=== PATIENT | female | born 1955 | race Caucasian/White ===

== ENCOUNTER 2017-10-28 16:19 | Emergency (ER) | payer OTHER ==
[2017-10-28] MEDS ORDERED: Acetaminophen TAB* 325 MG PO ONE (16:34)
--- NOTE | 2017-10-28 17:00 | RAD ---
Indication: Left Knee pain after fall 4 views of left knee demonstrates no fracture. No joint effusion is noted. IMPRESSION: No fracture of the left knee is noted.
[2017-10-28 18:41] VITALS: BP 144/74
--- NOTE | 2017-10-28 18:52 | ED ---
Jeanette Alvarado Gabriel, scribed for Lior Valencia MD on 10/28/17 at 1634 . Lower Extremity - HPI Summary HPI Summary: This patient is a 62 year old F presenting to [facility] s/p fall after she slipped on ice at 0900 today. Patient reports left knee pain and abrasion. The patient rates the pain 4/10 in severity. Symptoms aggravated by movement. Patient denies LOC and head trauma. She states it pops when she bends it and worked a full shift post fall. Patient is unsure of her last tetanus shot date but knows it wasnt over 10 years ago. - History of Current Complaint Chief Complaint: EDExtremityLower Stated Complaint: FALL/LT KNEE INJURY Time Seen by Provider: 10/28/17 16:27 Hx Obtained From: Patient Mechanism Of Injury: Fall From A Standing Position Onset of Pain: Immediate Onset/Duration: Still Present Severity Initially: Moderate Severity Currently: Moderate Pain Intensity: 4 Pain Scale Used: 0-10 Numeric Timing: Constant Associated Signs And Symptoms: Positive: Swelling, Knee Pain, Other - abrasion Aggravating Factor(s): Ambulation Able to Bear Weight: Yes - Allergies/Home Medications Allergies/Adverse Reactions: Allergies Allergy/AdvReac Type Severity Reaction Status Date / Time Hydrocodone AdvReac Intermediate Itching Verified 10/28/17 16:31 Insulin Detemir AdvReac Intermediate Itching Verified 10/28/17 16:31 [From Levemir] Phenol [From Levemir] AdvReac Intermediate Itching Verified 10/28/17 16:31 Cephalexin [From Keflex] AdvReac Unknown Nausea Verified 10/28/17 16:31 Exenatide [From Byetta] AdvReac Unknown Nausea Verified 10/28/17 16:31 PMH/Surg Hx/FS Hx/Imm Hx Endocrine/Hematology History: Reports: Hx Diabetes Denies: Hx Anticoagulant Therapy, Hx Bone Marrow Disease, Hx Anemia Cardiovascular History: Reports: Hx Hypercholesterolemia Denies: Hx Congestive Heart Failure, Hx Hypertension Respiratory History: Reports: Hx Asthma, Hx Sleep Apnea - current CPAP user, Other Respiratory Problems/Disorders - 50% Deviated Septum GI History: Reports: Hx Gastroesophageal Reflux Disease, Other GI Disorders - open hernia repair Denies: Hx Cirrhosis History: Denies: Hx Dialysis, Hx Renal Disease Musculoskeletal History: Reports: Hx Arthritis - RT KNEE AND HAND, Hx Back Problems - laminectomy, fusion, Other Musculoskeletal History - Degenerative Disk Diesease Sensory History: Reports: Hx Contacts or Glasses - READING INST GIVEN Denies: Hx Hearing Aid Opthamlomology History: Reports: Hx Contacts or Glasses - READING INST GIVEN Neurological History: Reports: Hx Migraine - NO RECENT MIGRAINES - Cancer History Hx Chemotherapy: No Hx Radiation Therapy: No - Surgical History Surgery Procedure, Year, and Place: TOTAL HYSTERECTOMY, ECTOPIC , C- SECTIONS X4, TUBAL REVERSAL, DIGITAL NERVE SURGERY, CERVICAL NECK SURGERY, BACK SURGERY; Gastric Bypass Surgery 11/28/12 at [facility] [place] 09/2013 open hernia repair Hx Anesthesia Reactions: No Infectious Disease History: No Infectious Disease History: Denies: Hx Hepatitis, History Other Infectious Disease, Traveled Outside the [place] in Last 30 Days - Family History Known Family History: Positive: Cardiac Disease, Other - NONCONTRIBUTORY - Social History Occupation: Employed Full-time Alcohol Use: None Substance Use Type: Reports: None Smoking Status (MU): Never Smoked Tobacco Review of Systems Positive: Other - head trauma and pain at left knee Neurological: Negative - LOC All Other Systems Reviewed And Are Negative: Yes Physical Exam - Summary Physical Exam Summary: VITAL SIGNS: Reviewed. GENERAL: Patient is a well-developed and nourished female who is lying comfortable in the stretcher. Patient is not in any acute respiratory distress. HEAD AND FACE: No signs of trauma. No ecchymosis, hematomas or skull depressions. No sinus tenderness. EYES: PERRLA, EOMI x 2, No injected conjunctiva, no nystagmus. EARS: Hearing grossly intact. Ear canals and tympanic membranes are within normal limits. MOUTH: Oropharynx within normal limits. NECK: Supple, trachea is midline, no adenopathy, no JVD, no carotid bruit, no c- spine tenderness, neck with full ROM. CHEST: Symmetric, no tenderness at palpation LUNGS: Clear to auscultation bilaterally. No wheezing or crackles. CVS: Regular rate and rhythm, S1 and S2 present, no murmurs or gallops appreciated. ABDOMEN: Soft, non-tender. No signs of distention. No rebound no guarding, and no masses palpated. Bowel sounds are normal. EXTREMITIES: Abrasion on the left knee with swelling Slightly ROM but the patient is able to bear weight and ambulate. NEURO: Alert and oriented x 3. No acute neurological deficits. Speech is normal and follows commands. SKIN: Dry and warm Triage Information Reviewed: Yes Vital Signs On Initial Exam: Initial Vitals Temp Pulse Resp BP Pulse Ox 99.2 F 72 16 147/75 100 10/28/17 16:21 10/28/17 16:21 10/28/17 16:21 10/28/17 16:21 10/28/17 16:21 Vital Signs Reviewed: Yes Diagnostics - Vital Signs Vital Signs Temp Pulse Resp BP Pulse Ox 10/28/17 16:21 99.2 F 72 16 147/75 100 - Laboratory Lab Statement: Any lab studies that have been ordered have been reviewed, and results considered in the medical decision making process. - Radiology knee xray Radiology Interpretation Completed By: Radiologist - No fracture of the left knee is noted. ED physician has reviewed this radiology report. Lower Extremity Course/Dx - Course Assessment/Plan: This patient is a 62 year old F presenting to [facility] s/p fall after she slipped on ice at 0900 today. Patient reports left knee pain and abrasion. The patient rates the pain 4/10 in severity. Symptoms aggravated by movement. Patient denies LOC and head trauma. She states it pops when she bends it and worked a full shift post fall. Patient is unsure of her last tetanus shot date but knows it wasnt over 10 years ago. Knee xray shows no fracture or dislocation. Patient was given Tylenol for the pain. The patient reports that she is UTD with all vaccinations therefore she will be she will be discharged home. She will be placed in a knee immobilizer for patient comfort. If the pain persists she will need to return to the emergency room for further evaluation. - Diagnoses Differential Diagnosis/HQI/PQRI: Positive: Burn, Bursitis, Cellulitis, Dislocation, Sprain, Strain Provider Diagnoses: Knee pain Discharge - Discharge Plan Condition: Stable Disposition: HOME Patient Education Materials: Knee Pain (ED) Referrals: Chaparro Burdick MD [Primary Care Provider] - 3 Days Additional Instructions: RETURN TO EMERGENCY DEPARTMENT FOR ANY NEW OR WORSENING SYMPTOMS The documentation as recorded by the Jeanette blanc Gabriel accurately reflects the service I personally performed and the decisions made by , Lior Valencia MD.
== END 2017-10-28 18:40 | disposition home or self-care (01) ==
LOC: ED 16:19
DX: M25.562 Pain in left knee (principal); Z91.81 History of falling; Z88.3 Allergy status to other anti-infective agents; Z88.5 Allergy status to narcotic agent; Z88.8 Allergy status to other drugs, medicaments and biological substances
CPT/HCPCS: 99282; A9270-GY

== ENCOUNTER 2019-06-21 15:23 | Emergency (ER) | payer OTHER ==
[2019-06-21 15:50] VITALS: BP 149/86
--- NOTE | 2019-06-21 16:29 | UC ---
Shoulder Pain HPI - HPI Summary HPI Summary: 64-year-old female who has noted increasing right shoulder and upper right back pain over the past week. 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 She's had no known injury however she has had C-spine surgery in the past approximate 3 years ago and states that she knows she has a bulging C3 and C4 disc which her specialist told her eventually she'll have to have surgery for that. She did have lower back surgery as well 3 years ago. She denies any numbness or tingling in her extremities. She denies any chest pain or difficulty breathing. - History of Current Complaint Chief Complaint: UCBackPain Stated Complaint: NECK BACK AND SHOULDER PAIN Time Seen by Provider: 06/21/19 16:11 Hx Obtained From: Patient Hx Last Menstrual Period: post ?: No Onset/Duration: Gradual Onset Timing: Constant Severity Initially: Mild Severity Currently: Mild Pain Intensity: 8 Character: Dull, Aching Aggravating Factor(s): Movement Alleviating Factor(s): Rest Associated Signs And Symptoms: Positive: Negative - Allergies/Home Medications Allergies/Adverse Reactions: Allergies Allergy/AdvReac Type Severity Reaction Status Date / Time cephalexin [From Keflex] Allergy Nausea Verified 06/21/19 15:50 exenatide [From Byetta] Allergy Nausea Verified 06/21/19 15:50 hydrocodone Allergy Itching Verified 06/21/19 15:50 insulin detemir Allergy Itching Verified 06/21/19 15:50 [From Levemir U-100 Insulin] phenol Allergy Itching Verified 06/21/19 15:50 Home Medications: Home Medications Turmeric Root Extract [Turmeric Curcumin] 500 mg PO DAILY 06/21/19 [History Confirmed 06/21/19] PMH/Surg Hx/FS Hx/Imm Hx Previously Healthy: Yes Endocrine History: Diabetes Other History Of: Negative For: Anticoagulant Therapy - Surgical History Surgical History: Yes Surgery Procedure, Year, and Place: TOTAL HYSTERECTOMY, ECTOPIC , C- SECTIONS X4, TUBAL REVERSAL, DIGITAL NERVE SURGERY, CERVICAL NECK SURGERY, BACK SURGERY; Gastric Bypass Surgery 11/28/[address] [facility] [place]. 09/2013 open hernia repair. Right knee repair 2018 - Family History Known Family History: Positive: Cardiac Disease, Other - NONCONTRIBUTORY - Social History Occupation: Employed Full-time Alcohol Use: Occasionally Substance Use Type: None Smoking Status (MU): Never Smoked Tobacco - Immunization History Most Recent Influenza Vaccination: FALL 2012 Most Recent Tetanus Shot: WITHIN 5 YEARS Most Recent Pneumonia Vaccination: YES, UNSURE OF DATE Review of Systems All Other Systems Reviewed And Are Negative: Yes Motor: Positive: Negative Neurovascular: Positive: Negative Musculoskeletal: Positive: Other: - Soreness right shoulder and upper back. Neurological: Positive: Negative Psychological: Positive: Negative Is Patient Immunocompromised?: No Physical Exam Triage Information Reviewed: Yes Appearance: Well-Appearing, No Pain Distress, Well-Nourished Vital Signs: Initial Vital Signs Temp 98.2 F 06/21/19 15:44 Pulse 78 06/21/19 15:44 Resp 16 06/21/19 15:44 BP 149/86 06/21/19 15:44 Pulse Ox 100 06/21/19 15:44 Vital Signs Reviewed: Yes Respiratory: Positive: Lungs clear, Normal breath sounds, No respiratory distress, No accessory muscle use Cardiovascular: Positive: RRR, No Murmur, Pulses Normal, Brisk Capillary Refill Musculoskeletal: Positive: Strength Intact, ROM Intact, No Edema, Other: - Mild pain on palpation right trapezius muscle. No bruising, erythema, deformity or swelling. Range of motion. Peripheral pulses neuro sensation and capillary refill. Good arm Strength bilaterally against resistance. Neurological: Positive: Alert, Muscle Tone Normal Psychological Exam: Normal Skin Exam: Normal Shoulder Course/Dx - Course Course Of Treatment: Patient is comfortable here. I am going to send her for physical therapy. She no longer has a back specialist however I advised her she should find a specialist. I also advised her to do some other work at [employer] which would not require her pulling out long in big pieces of lumber with her history of bulging disks and cervical and back surgery. Patient states she is able to do other work. She can continue Tylenol for pain as well as applying warm moist compresses to the sore area. - Differential Dx/Diagnosis Provider Diagnosis: Strain of right trapezius muscle Discharge ED - Sign-Out/Discharge Documenting (check all that apply): Patient Departure All imaging exams completed and their final reports reviewed: No Studies - Discharge Plan Condition: Good Disposition: HOME Patient Education Materials: Muscle Strain (DC) Referrals: Chaparro Burdick MD [Primary Care Provider] - Additional Instructions: Continue Tylenol every 4 hours for pain. Apply moist heat to the sore areas. Avoid movements that cause pain. Follow up for physical therapy evaluation and treatment. - Billing Disposition and Condition Condition: GOOD Disposition: Home - Attestation Statements Provider Attestation: I was available for consult. This patient was seen by the IVONNE. The patient was not presented to, seen by, or examined by me. -Nadine
== END 2019-06-21 16:45 | disposition home or self-care (01) ==
LOC: UCEAST 15:23
DX: S46.811A Strain of other muscles, fascia and tendons at shoulder and upper arm level, right arm, initial encounter (principal); X50.0XXA Overexertion from strenuous movement or load, initial encounter; Y93.89 Activity, other specified; Y92.89 Other specified places as the place of occurrence of the external cause; Y99.0 Civilian activity done for income or pay; E11.9 Type 2 diabetes mellitus without complications
CPT/HCPCS: 99211; G0463